=== PATIENT | female | born 1995 | race Caucasian/White ===

== ENCOUNTER 2017-04-20 03:09 | Emergency (ER) | payer BC ==
[2017-04-20] MEDS ORDERED: Acetaminophen 325 MG TAB ONE (04:00)
[2017-04-20] MEDS ORDERED: Ibuprofen 800 MG TAB ONE (05:44)
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
== END 2017-04-20 06:00 | disposition home or self-care (01) ==
LOC: ERS 03:09
DX: S93.402A Sprain of unspecified ligament of left ankle, initial encounter (principal); W50.1XXA Accidental kick by another person, initial encounter; Y93.41 Activity, dancing